=== PATIENT | female | born 2000 | race Caucasian/White ===

== ENCOUNTER 2023-11-06 22:38 | Emergency (ER) | payer SELFPAY ==
[~2023-11-06] VITALS: Ht 149.9 cm; Wt 105.0 kg
[2023-11-06 22:41] VITALS: BP 154/79; RESP 14; TEMP 98.2; O2SAT 99
[2023-11-06 22:45] VITALS: PULSE 105
[2023-11-07 01:30] LABS: BASOPHILS % 0.8 % (0.0-2.0); DIFFERENTIAL COMMENT 0; EOSINOPHILS % 0.9 % (0.0-5.0); HEMATOCRIT. 43.2 % (36.0-48.0); LYMPHOCYTES % 26.3 % (20.0-50.0); MEAN CORPUSCULAR HEMOGLOBIN 33.3 pg (28.0-32.0); MEAN CORPUSCULAR HGB CONC 32.4 g/dL (31.0-37.0); MEAN CORPUSCULAR VOLUME 102.9 fL (81.0-99.0); MEAN PLATELET VOLUME 8.9 fl (7.4-10.4); MONOCYTES % 6.8 % (2.0-8.0); NEUTROPHILS % 65.2 % (40.0-76.0); PLATELET 299 x1000/uL (130-400); RED CELL DISTRIBUTION WIDTH 13.4 % (11.6-14.6); WHITE BLOOD COUNT 13.2 x1000/uL (4.5-11.0)
[2023-11-07 01:44] LABS: ALANINE AMINOTRANSFERASE 145 IU/L (10-49); ALBUMIN 4.2 g/dL (3.2-4.8); ASPARTATE AMINOTRANSFERASE 179 IU/L (<34); BILIRUBIN TOTAL 0.7 mg/dL (0.1-1.0); CALCIUM 9.2 mg/dL (8.7-10.4); CARBON DIOXIDE 22 mEq/L (21-32); CHLORIDE 103 mEq/L (98-107); CREATININE 0.6 mg/dL (0.6-1.0); GLUCOSE 93 mg/dL (70-105); POTASSIUM 3.5 mEq/L (3.5-5.1); PROTEIN TOTAL 8.3 g/dL (6.0-8.3); SODIUM 136 mEq/L (136-145); UREA NITROGEN BLOOD 8 mg/dL (9-23)
[2023-11-07] MEDS ORDERED: FAMO-135 MT (01:53)
[2023-11-07 02:00] LABS: MONOTEST NEGATIVE (NEGATIVE)
[2023-11-07] MEDS ORDERED: AMOX1TAB16 MT (02:06)
== END 2023-11-07 03:15 | disposition home or self-care (01) ==
LOC: ER 22:38
DX: J35.1 Hypertrophy of tonsils (principal)
CPT/HCPCS: 36415; 80053; 85025; 86308; 87430; 99285

== ENCOUNTER 2025-05-04 18:20 | Emergency (ER) | payer MEDICAID ==
[~2025-05-04] VITALS: Ht 154.9 cm; Wt 105.0 kg
[~2025-05-04 18:20] MED LIST: AMOX1TAB16 MT; FAMO-135 MT
[2025-05-04 18:38] VITALS: BP 152/77; PULSE 71; RESP 18; TEMP 36.7; O2SAT 100
== END 2025-05-04 19:04 | disposition home or self-care (01) ==
LOC: ER 18:20
DX: S61.419D Laceration without foreign body of unspecified hand, subsequent encounter (principal); Z53.21 Procedure and treatment not carried out due to patient leaving prior to being seen by health care provider; X58.XXXD Exposure to other specified factors, subsequent encounter
CPT/HCPCS: 99281